=== PATIENT | male | born 1945 | race Two or more races ===

== ENCOUNTER → 2016-12-21 | Outpatient (CLI) | payer BC, MEDICARE ==
--- NOTE | 2016-12-22 03:12 | REP ---
Clinical: Dyspnea. Technique: PA and lateral views. Comparison: Report dated 03/19/2010. Findings: Evidence of prior sternotomy and CABG. Cardiac silhouette is normal. Lung sanchez demonstrate chronic-appearing changes without focal consolidation, effusion, or pneumothorax. Skeletal structures demonstrate age-related changes. Impression: No acute cardiopulmonary process appreciated. Signed by Ashutosh Lopez MD 12/22/2016 03:03 A
== END ==
LOC: M ADAMS 10:49
PROVIDERS: ATTEND Physician Assistant Medical
DX: R06.09 Other forms of dyspnea (principal)

== ENCOUNTER → 2016-12-27 | Outpatient (CLI) | payer MEDICARE ==
--- NOTE | 2016-12-27 13:42 | PFTRPT ---
Tech: [place] RRT Age: 71 Sex: Male Race: Height: 70.00 Inches Weight: 203.00 Lbs BSA: 2.10 Diagnosis: R06.09 PULMONARY FUNCTION REPORT ORDERING PROVIDER: Lucila Victor PA-C DATE OF SERVICE: 12/27/16 SPIROMETRY: Pre and post bronchodilator study of excellent technical quality. The forced vital capacity is normal. The FEV1 is in proportion. The obstructive index is, therefore, normal. FLOW VOLUME LOOP: The expiratory limb of the flow volume loop is reasonably normal. No significant bronchodilator response is identified. LUNG VOLUMES: The total lung capacity is normal. The residual volume is borderline in proportion. DIFFUSION CAPACITY: The diffusion capacity is normal. HEMOGLOBIN: No hemoglobin is available for correction. AIRWAY MECHANICS: Airways resistance and conductance are normal. IMPRESSION: Probably normal study. MTDD
== END ==
LOC: M CARPUL 13:06
PROVIDERS: ATTEND Physician Assistant Medical
DX: R06.09 Other forms of dyspnea (principal)

== ENCOUNTER → 2017-10-18 | Outpatient (CLI) | payer MEDICARE | LOC: M ADAMS 13:36 | DX: M51.36 Other intervertebral disc degeneration, lumbar region (principal); M43.16 Spondylolisthesis, lumbar region; M25.78 Osteophyte, vertebrae; M54.5 Low back pain; M62.838 Other muscle spasm; W08.XXXA Fall from other furniture, initial encounter; Y92.9 Unspecified place or not applicable; Z98.1 Arthrodesis status | CPT/HCPCS: 72110 ==

== ENCOUNTER 2022-11-02 07:19 | Day surgery (SDC) | payer MEDICARE, OTHER ==
[~2022-11-02] VITALS: Ht 175.3 cm; Wt 89.4 kg
[~2022-11-02 07:19] MED LIST: ASPI81TA26 PO; ATOR40TA75 PO; METO75TA PO; NITR0.4S14 SL; NS 1,000 ML IV ONE; OMEG10002 PO; SERT-141 PO; TAFL1DRO6 OU; VALS1TAB67 PO; VITMTA PO
[2022-11-02] MEDS ORDERED: propofoL 500 MG/50 ML VIAL As Ordered ONE (08:47)
[2022-11-02] MEDS ORDERED: LIDOCAINE 2% 100MG/5ML SDV (FOR ANES.) As Ordered ONE (08:47)
[2022-11-02 09:16] VITALS: TEMP 98.5
[2022-11-02 09:43] VITALS: BP 151/67; O2SAT 99
== END 2022-11-02 09:44 | disposition home or self-care (01) ==
LOC: M OPP 07:19
PROVIDERS: ATTEND Internal Medicine Gastroenterology
DX: Z12.11 Encounter for screening for malignant neoplasm of colon (principal); D12.6 Benign neoplasm of colon, unspecified; K57.30 Diverticulosis of large intestine without perforation or abscess without bleeding; K64.4 Residual hemorrhoidal skin tags; K64.8 Other hemorrhoids; Z79.02 Long term (current) use of antithrombotics/antiplatelets; Z79.82 Long term (current) use of aspirin; Z79.899 Other long term (current) drug therapy